=== PATIENT | male | born 1945 | race Caucasian/White ===

== ENCOUNTER 2022-11-01 18:26 | Inpatient (IN) ==
[2022-11-01 19:18] LABS: Basophils % 0.2 % (0.0-0.8); Eosinophils % 0.3 % (0.00-10.9); Hematocrit 39.5 VOL% (42.0-52.0); Hemoglobin 13.5 GM/DL (14.0-18.0); Immature Granulocytes % 0.7 %; Immature Granulocytes Absolute 0.08 #; Lymphocytes # 0.9 10*3/uL (1.4-4.0); Lymphocytes % 7.7 % (21.2-54.2); Mean Corpuscular HGB Conc 34.2 GM/DL (32-36); Mean Corpuscular Volume 89.8 FL (87-102); Mean Platelet Volume 9.3 FL (9.6-12.0); Monocytes # 0.7 10*3/uL (0.11-0.8); Monocytes % 6.1 % (1.7-12.7); Platelet Count 226 T/CUMM (130-400); White Blood Count 12.2 T/CUMM (4-12)
[2022-11-01] MEDS ORDERED: SODIUM CHLORIDE 0.9% 1,000 ML IV STA (19:24)
[2022-11-01 19:36] LABS: Bilirubin,Total 0.7 MG/DL (0.20-1.00); Calcium 8.7 MG/DL (8.5-10.1); Osmolality,Calculated 278.8 MOS/KG (273-304); Potassium 4.1 MMOL/L (3.5-5.1)
[2022-11-01] MEDS ORDERED: ACETAMINOPHEN 325 MG TABLET PO PRN (21:19)
[2022-11-01] MEDS ORDERED: ONDANSETRON 4 MG/2 ML VIAL IV PRN (21:19)
[2022-11-01] MEDS ORDERED: hydrALAZINE 20 MG/1 ML VIAL IV PRN (21:19)
[2022-11-01] MEDS ORDERED: MECLIZINE 25 MG TABLET PO STA (21:26)
[2022-11-01] MEDS ORDERED: DEXTROSE 10% 250 ML BAG IV PRN (21:34)
[2022-11-02] MEDS ORDERED: ENOXAPARIN 60 MG/0.6 ML SYRINGE SUBCUT ONE (03:42)
[2022-11-02] MEDS ORDERED: MAGNESIUM SULF RIDER 2 GM/50 ML PREMIX IV PRN (07:05)
[2022-11-02] MEDS ORDERED: POTASSIUM CHLORIDE RIDER 10 MEQ/100 ML PREMIX IV PRN (07:05)
[2022-11-02 07:08] LABS: Basophils % 0.3 % (0.0-0.8); Eosinophils # 0.1 10*3/uL (0.0-0.87); Eosinophils % 0.9 % (0.00-10.9); Hematocrit 37.4 VOL% (42.0-52.0); Hemoglobin 12.8 GM/DL (14.0-18.0); Immature Granulocytes % 0.7 %; Immature Granulocytes Absolute 0.07 #; Lymphocytes # 1.9 10*3/uL (1.4-4.0); Lymphocytes % 18.2 % (21.2-54.2); Mean Corpuscular HGB Conc 34.2 GM/DL (32-36); Mean Platelet Volume 9.3 FL (9.6-12.0); Monocytes # 0.9 10*3/uL (0.11-0.8); Monocytes % 8.4 % (1.7-12.7); Neutrophils % 71.5 % (38.7-73.9); Platelet Count 216 T/CUMM (130-400); Red Blood Count 4.11 MC/CUMM (3.8-5.5); Red Cell Distribution Width 12.1 % (9.3-17.3); White Blood Count 10.5 T/CUMM (4-12)
[2022-11-02 07:33] LABS: Albumin 3.5 G/DL (3.4-5.0); Bilirubin,Total 0.7 MG/DL (0.20-1.00); Calcium 8.6 MG/DL (8.5-10.1); Risk Ratio 3.44; Total Protein 6.7 G/DL (6.4-8.2)
[2022-11-02] MEDS: INSULIN REGULAR 100 UNIT/ML SUBCUT SCH ×4 (08:35→21:06)
[2022-11-02] MEDS ORDERED: ASPIRIN EC 325 MG TABLET PO ONE (08:37)
[2022-11-02] MEDS ORDERED: ENOXAPARIN 40 MG/0.4 ML SYRINGE SUBCUT SCH (09:00)
[2022-11-02] MEDS: MECLIZINE 25 MG TABLET PO SCH ×3 (09:19→21:06)
[2022-11-02] MEDS: METOPROLOL TARTRATE 25 MG TABLET PO SCH ×2 (09:23→21:06)
[2022-11-02] MEDS: PANTOPRAZOLE 40 MG TABLET PO SCH (09:23)
[2022-11-02] MEDS: ENALAPRIL 5 MG TABLET PO SCH (09:25)
[2022-11-02] MEDS: SODIUM CHLORIDE 0.9% 1,000 ML IV SCH ×3 (09:26→22:25)
[2022-11-02] MEDS ORDERED: DIAZEPAM 5 MG TABLET PO ONE (10:30)
[2022-11-02] MEDS ORDERED: diphenhydrAMINE CAP 50 MG CAPSULE PO ONE (10:30)
[2022-11-02] MEDS ORDERED: NITROGLYCERIN DRIP 50 MG/250 ML BOTTLE IV ONE (10:43)
[2022-11-02] MEDS ORDERED: VERAPAMIL 5 MG/2 ML VIAL ONE (10:44)
[2022-11-02] MEDS ORDERED: fentaNYL 100 MCG/2 ML VIAL ONE (11:10)
[2022-11-02] MEDS ORDERED: MIDAZOLAM 2 MG/2 ML VIAL ONE (11:10)
[2022-11-02] MEDS ORDERED: ENOXAPARIN 30 MG/0.3 ML SYRINGE ONE (11:24)
[2022-11-02] MEDS: ENOXAPARIN 100 MG/ML SYRINGE SUBCUT SCH (16:56)
[2022-11-02] MEDS ORDERED: ROSUVASTATIN 20 MG TABLET PO SCH (21:00)
[2022-11-02] MEDS ORDERED: SIMVASTATIN 40 MG TABLET PO SCH (21:00)
[2022-11-03] MEDS: ENOXAPARIN 100 MG/ML SYRINGE SUBCUT SCH (03:54)
[2022-11-03 06:02] LABS: Basophils % 0.4 % (0.0-0.8); Eosinophils # 0.2 10*3/uL (0.0-0.87); Eosinophils % 1.6 % (0.00-10.9); Hematocrit 36.5 VOL% (42.0-52.0); Hemoglobin 12.2 GM/DL (14.0-18.0); Immature Granulocytes % 0.6 %; Immature Granulocytes Absolute 0.06 #; Lymphocytes # 2.4 10*3/uL (1.4-4.0); Lymphocytes % 25.5 % (21.2-54.2); Mean Corpuscular HGB Conc 33.4 GM/DL (32-36); Mean Corpuscular Volume 92.2 FL (87-102); Mean Platelet Volume 9.5 FL (9.6-12.0); Monocytes # 0.7 10*3/uL (0.11-0.8); Monocytes % 7.7 % (1.7-12.7); Neutrophils % 64.2 % (38.7-73.9); Platelet Count 241 T/CUMM (130-400); Red Blood Count 3.96 MC/CUMM (3.8-5.5); Red Cell Distribution Width 12.2 % (9.3-17.3); White Blood Count 9.4 T/CUMM (4-12)
[2022-11-03 06:16] LABS: Calcium 8.3 MG/DL (8.5-10.1); Potassium 4.3 MMOL/L (3.5-5.1)
[2022-11-03] MEDS: INSULIN REGULAR 100 UNIT/ML SUBCUT SCH ×2 (07:40→12:05)
[2022-11-03] MEDS: PANTOPRAZOLE 40 MG TABLET PO SCH (08:46)
[2022-11-03] MEDS: MECLIZINE 25 MG TABLET PO SCH (08:46)
[2022-11-03] MEDS: METOPROLOL TARTRATE 25 MG TABLET PO SCH (08:46)
[2022-11-03] MEDS: ENALAPRIL 5 MG TABLET PO SCH (08:46)
[2022-11-03] MEDS ORDERED: DAPAGLIFLOZIN 10 MG TABLET PO SCH (09:00)
[2022-11-03] MEDS ORDERED: ASPIRIN EC 81 MG TABLET PO SCH (09:00)
[2022-11-03 12:34] VITALS: BP 149/62
== END 2022-11-03 13:50 | disposition home or self-care (01) | DRG 281 ==
LOC: EDUNIT# → EDBD → N.EDINP 18:26 → N.ED 18:26 → N.2W 22:43 → SUATTDRO 11-02 08:29
PROVIDERS: ADMIT Internal Medicine; ATTEND Internal Medicine
PROC: CLCCHCL (ICD-10-PCS; 2022-11-02 10:15)